=== PATIENT | male | born 1950 | race Caucasian/White ===

== ENCOUNTER 2021-10-19 21:28 | Emergency (ER) | payer OTHER ==
[~2021-10-19] VITALS: Ht 180.3 cm; Wt 136.1 kg
[2021-10-19] MEDS: ONDANSETRON 4 MG/2 ML VIAL IV ONE (21:45)
[2021-10-19] MEDS: MORPHINE SULFATE 2 MG/1 ML DISP.SYRIN IV ONE (21:45)
[2021-10-19] MEDS: IV NORMAL SALINE 1000 ML BAG IV ONE (21:45)
--- NOTE | 2021-10-19 21:45 | NUR ---
Pt brought back to room ED1B by RA via stretcher for acute abd pain and nausea. Pt connected to monitor and dressed in gown. Pt in uncontroled afib with RVR, asymptiomatic. denies any vomiting or diaphoresis. other VS ok. EDMD at bedside for eval.
--- NOTE | 2021-10-19 21:55 | NUR ---
Both myself and my charge nurse attempted multiple times initiate IV access with no avail. 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 It was near impossible to gain IV access. EDMD also attempted but was unsuccessful. EDMD then ordered a PICC line to be incerted state for pt condition seemed gaurded at the time.
[2021-10-19] MEDS ORDERED: MORPHINE SULFATE 2 MG/1 ML DISP.SYRIN ONE (22:09)
[2021-10-19] MEDS ORDERED: ONDANSETRON 4 MG/2 ML VIAL ONE (22:10)
[2021-10-19 22:14] LABS: HEMATOCRIT 33.9 % (36.7-47.1); MEAN CORPUSCULAR HEMOGLOBIN 24.1 uug (23.8-33.4); MEAN CORPUSCULAR VOLUME 75.9 fL (73.0-96.2); PLATELET COUNT (AUTO) 269 K/uL (152-348)
[2021-10-19] MEDS: AZITHROMYCIN IV 500 MG in IV DEXTROSE 5% 250 ML IV ONE (22:15)
[2021-10-19] MEDS: CEFTRIAXONE 1 G in IV DEXTROSE 5% 50 ML IV ONE (22:15)
--- NOTE | 2021-10-19 22:30 | NUR ---
Gaston CAM was drafted to quickly incert a picc line, he was already in the hospital. Gaston incerted PICC in 10min without difficulty.
[2021-10-19 22:43] LABS: BILIRUBIN,DIRECT 0.3 mg/dL (0.0-0.2); BILIRUBIN,TOTAL 1.9 mg/dL (0.2-1.0); CREATININE 1.7 mg/dL (0.6-1.3); POTASSIUM 3.8 mmol/L (3.5-5.1); TOTAL PROTEIN, SERUM 8.1 g/dL (6.4-8.2)
[2021-10-19] MEDS ORDERED: IV NORMAL SALINE 250 ML IV ONE (23:05)
[2021-10-19] MEDS ORDERED: IOHEXOL 300MG/ML 100 ML INFUS..BTL ONE (23:05)
[2021-10-19] MEDS ORDERED: SWABABLE VALVE TRANSFER SET EA MC ONE (23:05)
[2021-10-19] MEDS: IV NORMAL SALINE 100 ML BAG IV ONE (23:30)
[2021-10-19] MEDS ORDERED: LISI10TA29 PO (23:56)
[2021-10-19] MEDS ORDERED: POTA-10 PO (23:56)
[2021-10-19] MEDS ORDERED: DIGO250T PO (23:56)
[2021-10-19] MEDS ORDERED: METO25TA6 PO (23:56)
[2021-10-19] MEDS ORDERED: LEVO150T8 PO (23:56)
[2021-10-19] MEDS ORDERED: FURO40TA5 PO (23:56)
[2021-10-19] MEDS ORDERED: PRAV10TA40 PO (23:56)
[2021-10-19] MEDS ORDERED: HYDR100T27 PO (23:56)
[2021-10-20] MEDS: METRONIDAZOLE 500 MG/NS 100 ML PIGGYBACK IV ONE (00:30)
[2021-10-20] MEDS: HYDROMORPHONE 1 MG/1 ML DISP.SYRIN IV ONE (01:00)
[2021-10-20] MEDS ORDERED: CEFTRIAXONE /D5W 50ML IVPB **ER PYXIS IV ONE (01:18)
[2021-10-20] MEDS ORDERED: AZITHROMYCIN 500MG/ D5W 250ML IVPB **ER PYXIS ONLY IV ONE (01:19)
[2021-10-20] MEDS ORDERED: METRONIDAZOLE 500 MG/NS 100ML 100 ML IV ONE (01:20)
[2021-10-20] MEDS ORDERED: INSULIN REGULAR, HUMAN 10 UNIT in IV NORMAL SALINE 100 ML IV ONE ×3 (08:15→09:15)
--- NOTE | 2021-10-20 08:35 | NUR ---
Dr Chris made aware of Pt's elevated Blood glucose, order recieved.
[2021-10-20] MEDS: INSULIN REGULAR, HUMAN 300 UNIT/3 ML VIAL IV ONE ×2 (08:38→09:22)
--- NOTE | 2021-10-20 08:55 | NUR ---
Dr Chris made aware of Pt's 600 blood glucose, awaiting orders.
[2021-10-20] MEDS ORDERED: INSULIN REGULAR, HUMAN 300 UNIT/3 ML VIAL ONE (09:05)
--- NOTE | 2021-10-20 09:10 | NUR ---
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 Relay message to Dr Chris.
[2021-10-20] MEDS: CLONAZEPAM 0.5 MG TABLET PO ONE (09:13)
[2021-10-20] MEDS ORDERED: CLONAZEPAM 1 MG TABLET ONE (09:17)
--- NOTE | 2021-10-20 09:40 | NUR ---
Report given to John VELEZ, Champ. Pt blood glucose decreased to 284. Pt denies any s/s of hypo/hyperglycemia.
--- NOTE | 2021-10-20 10:01 | NUR ---
Report gived to transfering hot kettle tender. Pt left in gaurded condition. All belongings sent w/ pt. Pt family made aware by phone regarding pt's transfer to [facility]
== END 2021-10-20 10:16 | disposition short-term general hospital (02) ==
LOC: ER 21:29
DX: J18.9 Pneumonia, unspecified organism (principal); R05.9 Cough, unspecified; I11.0 Hypertensive heart disease with heart failure; I50.9 Heart failure, unspecified; I48.91 Unspecified atrial fibrillation; E78.5 Hyperlipidemia, unspecified; E03.9 Hypothyroidism, unspecified; Z79.899 Other long term (current) drug therapy; Z20.822 Contact with and (suspected) exposure to COVID-19
CPT/HCPCS: 36410; 36415 ×2; 71045; 74177; 76705; 80048; 80076; 82962 ×3; 83605 ×2; 83690; 83880; 84484; 85025; 87040 ×2; 87426; 93005; 96365; 96366 ×2; 96368; 96375 ×2; 96376; 99291; J0456; J0696; J1815; J2270; J2405; J3490; Q9967; 70030-TC; A4663; J7030; J7050